=== PATIENT | male | born 1990 | race Caucasian/White ===

== ENCOUNTER 2020-07-15 21:57 | Emergency (ER) | payer OTHER ==
[2020-07-15 22:31] VITALS: BP 130/76; PULSE 69; TEMP 98.2; BMI 30.4
[2020-07-15] MEDS ORDERED: FAMOTIDINE 20 MG TABLET PO ONE (23:01)
[2020-07-15] MEDS ORDERED: MAG HYDROX/AL HYDROX/SIMETH 30 ML UNIT-DOSE CUP PO ONE (23:01)
[2020-07-15] MEDS ORDERED: MAG HYDROX/AL HYDROX/SIMETH 30 ML UNIT-DOSE CUP ONE (23:02)
[2020-07-15] MEDS ORDERED: FAMOTIDINE 20 MG TABLET ONE (23:02)
== END 2020-07-15 23:49 | disposition home or self-care (01) ==
LOC: JER 21:57 → JERFT 21:57
DX: K29.00 Acute gastritis without bleeding (principal)
CPT/HCPCS: 71046-TC-FY; 93005; 93010; 99285-25